=== PATIENT | female | born 1960 | race Caucasian/White ===

== ENCOUNTER 2017-05-25 15:02 | Outpatient (RCR) | payer MEDICARE, OTHER ==
[2011-11-25 11:00] VITALS: BP 132/75
[~2017-05-25 15:02] MED LIST: LEVAQUIN 5500 MG/TA1 PO; PERCOCET 325 MG1 TA2 PO; [UNRECOGNIZED DRUG - CODE] PO
== END 2017-08-23 | disposition home or self-care (01) ==
LOC: CARDREHAB
DX: Z48.812 Encounter for surgical aftercare following surgery on the circulatory system (principal); Z95.5 Presence of coronary angioplasty implant and graft; I21.19 ST elevation (STEMI) myocardial infarction involving other coronary artery of inferior wall

== ENCOUNTER 2019-06-02 21:38 | Observation (INO) | payer MEDICARE, OTHER ==
[~2019-06-02] VITALS: Ht 162.6 cm; Wt 59.4 kg
[2019-06-02 22:02] LABS: HEMATOCRIT 38.1 % (37.0-47.0); HEMOGLOBIN 12.5 g/dL (12.5-16.0); MEAN CELL VOLUME 98 fl (78-100); MEAN CORPUSCULAR HEMOGLOBIN 32 pg (27-31); MEAN CORPUSCULAR HGB CONC 33 g/dL (33-37); MEAN PLATELET VOLUME 10.7 fl (7.4-10.4); PLATELET COUNT 117 K/mm3 (130-400); RED BLOOD COUNT 3.87 M/mm3 (4.10-5.30); RED CELL DISTRIBUTION WIDTH 14.2 % (11.5-14.5); WHITE BLOOD COUNT 3.8 K/mm3 (4.8-10.8)
[2019-06-02 22:12] LABS: POTASSIUM 4.3 mmol/L (3.5-5.1)
[2019-06-02 22:13] LABS: CALCIUM 9.2 mg/dL (8.3-10.5)
[2019-06-02 22:14] LABS: TOTAL PROTEIN 7.1 g/dL (6.4-8.3)
[2019-06-02 22:16] LABS: TOTAL BILIRUBIN 0.3 mg/dL (0.2-1.2)
[2019-06-02 22:33] LABS: BAND 3 % (0-10); LYMPHOCYTE 2 % (20-51); MONOCYTE 5 % (3-10); NEUTROPHILS 90 % (42-75)
[2019-06-02] MEDS ORDERED: SYMBICORT1 AE3 IH (22:39)
[2019-06-02] MEDS ORDERED: ATORVASTATIN CA40 MG PO (22:39)
[2019-06-02] MEDS ORDERED: CLOPIDOGREL75 M2 PO (22:40)
[2019-06-02] MEDS ORDERED: ISOSORBIDE30 MG PO (22:40)
[2019-06-02] MEDS ORDERED: LOPRESSOR 550 MG/TAB PO (22:41)
[2019-06-02] MEDS ORDERED: ASPIR LOW81 MG PO (22:41)
[2019-06-02 23:05] VITALS: BP 107/63
[2019-06-02 23:50] VITALS: BP 107/63
[2019-06-03 02:29] VITALS: BP 116/69
[2019-06-03 05:34] VITALS: BP 162/78
[2019-06-03 09:51] VITALS: BP 100/58
[2019-06-03 14:01] VITALS: BP 144/77
[2019-06-03 17:05] VITALS: BP 94/42
[2019-06-03 22:05] VITALS: BP 111/71
[2019-06-04 02:07] VITALS: BP 108/61
[2019-06-04 05:44] VITALS: BP 114/63
[2019-06-04 09:53] VITALS: BP 111/67
[2019-06-05] MEDS ORDERED: IPRATROPIUM BROM3 M1 IH (19:17)
== END 2019-06-04 12:26 | disposition other institution (70) ==
LOC: ED 21:38 → MED/SURG 23:04 → ED 23:06 → MED/SURG 23:06
PROVIDERS: ADMIT Nurse Practitioner Primary Care
DX: J10.00 Influenza due to other identified influenza virus with unspecified type of pneumonia (principal); J44.1 Chronic obstructive pulmonary disease with (acute) exacerbation; F17.210 Nicotine dependence, cigarettes, uncomplicated; I25.10 Atherosclerotic heart disease of native coronary artery without angina pectoris; Z95.5 Presence of coronary angioplasty implant and graft; I10 Essential (primary) hypertension; E78.5 Hyperlipidemia, unspecified; Z79.82 Long term (current) use of aspirin; Z79.899 Other long term (current) drug therapy
CPT/HCPCS: A4216; G0378; J0456; J0696; J1650; J1885; J2930; J7030; J7050

== ENCOUNTER 2021-07-22 16:46 | Emergency (ER) | payer MEDICARE, OTHER ==
[~2021-07-22] VITALS: Ht 162.6 cm; Wt 60.9 kg
[~2021-07-22 16:46] MED LIST changes: +ADULT LOW DOSE81 MG PO; +ATORVASTATIN CA40 MG PO; +CLOPIDOGREL75 M2 PO; +IPRATROPIUM BROM3 M1 IH; +LOPRESSOR 550 MG/TAB PO; +SYMBICORT1 AE3 IH
[2021-07-22] MEDS ORDERED: WIXELA 250-501 EACH IH (17:00)
[2021-07-22] MEDS ORDERED: PREDNISONE20 M1 PO (17:01)
[2021-07-22] MEDS ORDERED: VIBRAMYCIN HYC100 MG PO (17:01)
[2021-07-22 17:21] LABS: MEAN CELL VOLUME 96 fl (78-100); MEAN CORPUSCULAR HEMOGLOBIN 32 pg (27-31); MEAN CORPUSCULAR HGB CONC 33 g/dL (33-37); PLATELET COUNT 235 K/mm3 (130-400); RED BLOOD COUNT 3.76 M/mm3 (4.10-5.30); RED CELL DISTRIBUTION WIDTH 14.1 % (11.5-14.5); WHITE BLOOD COUNT 10.5 K/mm3 (4.8-10.8)
[2021-07-22 17:32] LABS: POTASSIUM 4.2 mmol/L (3.5-5.1); SODIUM 143 mmol/L (136-145)
[2021-07-22 17:33] LABS: CALCIUM 10.7 mg/dL (8.3-10.5)
[2021-07-22 17:34] LABS: GLUCOSE 122 mg/dL (65-105)
[2021-07-22 17:35] LABS: CARBON DIOXIDE 23 mmol/L (23-31)
[2021-07-22 17:46] LABS: TROPONIN-I < 0.030 ng/mL (<0.030)
[2021-07-22 18:10] LABS: LYMPHOCYTE 4 % (20-51); MONOCYTE 7 % (3-10); NEUTROPHILS 89 % (42-75)
[2021-07-22] MEDS ORDERED: LORAZEPAM0.5 M1 PO (18:53)
[2021-07-22 19:04] VITALS: BP 12/78
== END 2021-07-22 19:27 | disposition home or self-care (01) ==
LOC: ED 16:46
PROVIDERS: Family Medicine
DX: J44.1 Chronic obstructive pulmonary disease with (acute) exacerbation (principal); R06.00 Dyspnea, unspecified; F17.210 Nicotine dependence, cigarettes, uncomplicated; Z86.16 Personal history of COVID-19

== ENCOUNTER 2021-07-24 21:23 | Emergency (ER) | payer MEDICARE, OTHER ==
[~2021-07-24] VITALS: Ht 162.6 cm; Wt 60.0 kg
[~2021-07-24 21:23] MED LIST changes: +LORAZEPAM0.5 M1 PO; +PREDNISONE20 M1 PO; +VIBRAMYCIN HYC100 MG PO; +WIXELA 250-501 EACH IH
[2021-07-24 22:19] LABS: HEMATOCRIT 37.4 % (37.0-47.0); HEMOGLOBIN 12.4 g/dL (12.5-16.0); MEAN CELL VOLUME 96 fl (78-100); MEAN CORPUSCULAR HEMOGLOBIN 32 pg (27-31); MEAN CORPUSCULAR HGB CONC 33 g/dL (33-37); MEAN PLATELET VOLUME 9.8 fl (7.4-10.4); PLATELET COUNT 280 K/mm3 (130-400); RED BLOOD COUNT 3.91 M/mm3 (4.10-5.30); WHITE BLOOD COUNT 8.9 K/mm3 (4.8-10.8)
[2021-07-24 22:32] LABS: POTASSIUM 4.1 mmol/L (3.5-5.1)
[2021-07-24 22:33] LABS: CALCIUM 10.6 mg/dL (8.3-10.5)
[2021-07-24 23:04] LABS: LYMPHOCYTE 9 % (20-51); MONOCYTE 8 % (3-10); NEUTROPHILS 83 % (42-75)
[2021-07-25 09:50] VITALS: BP 158/95
[2021-07-25] MEDS ORDERED: ISOSORBIDE30 MG PO (15:14)
== END 2021-07-25 07:36 | disposition other institution (70) ==
LOC: ED 21:23
PROVIDERS: Family Medicine
DX: J44.1 Chronic obstructive pulmonary disease with (acute) exacerbation (principal); I25.10 Atherosclerotic heart disease of native coronary artery without angina pectoris; R09.02 Hypoxemia; Z95.5 Presence of coronary angioplasty implant and graft; Z87.891 Personal history of nicotine dependence; Z20.822 Contact with and (suspected) exposure to COVID-19
CPT/HCPCS: J0696; J2930

== ENCOUNTER 2021-07-25 07:24 | Inpatient (IN) | payer MEDICARE, OTHER ==
[~2021-07-25] VITALS: Ht 162.6 cm; Wt 56.0 kg
[2021-07-25 09:00] VITALS: BP 158/95
[2021-07-25 11:02] LABS: BASO # 0.01 K/mm3 (0.02-0.10); HEMATOCRIT 36.8 % (37.0-47.0); HEMOGLOBIN 12.1 g/dL (12.5-16.0); LYMPH# 0.72 K/mm3 (1.50-4.00); MEAN CELL VOLUME 96 fl (78-100); MEAN CORPUSCULAR HEMOGLOBIN 32 pg (27-31); MEAN CORPUSCULAR HGB CONC 33 g/dL (33-37); MEAN PLATELET VOLUME 10.1 fl (7.4-10.4); MONO # 0.59 K/mm3 (0.20-0.80); NEU # 6.04 K/mm3 (1.40-6.50); PLATELET COUNT 278 K/mm3 (130-400); RED BLOOD COUNT 3.83 M/mm3 (4.10-5.30); RED CELL DISTRIBUTION WIDTH 13.8 % (11.5-14.5); WHITE BLOOD COUNT 7.5 K/mm3 (4.8-10.8)
[2021-07-25 11:17] LABS: CALCIUM 10.3 mg/dL (8.3-10.5)
[2021-07-25 11:50] LABS: D-DIMER 0.68 mg/L FEU (0.15-0.50)
[2021-07-25 14:13] VITALS: BP 157/81
[2021-07-25] MEDS ORDERED: ISOSORBIDE30 MG PO (15:14)
[2021-07-25 18:00] VITALS: BP 140/85
[2021-07-25 19:26] LABS: URINE APPEARANCE CLEAR; URINE BILIRUBIN NEGATIVE (NEGATIVE); URINE BLOOD NEGATIVE (NEGATIVE); URINE COLOR YELLOW; URINE GLUCOSE NEGATIVE (NEGATIVE); URINE KETONE NEGATIVE (NEGATIVE); URINE LEUKOCYTE ESTERASE NEGATIVE (NEGATIVE); URINE NITRATE NEGATIVE (NEGATIVE); URINE PROTEIN(semi-quant) TRACE (NEGATIVE); URINE UROBILINOGEN NORMAL (NORMAL)
[2021-07-25 22:21] VITALS: BP 145/82
[2021-07-26 01:46] VITALS: BP 115/66
[2021-07-26 05:54] VITALS: BP 145/73
[2021-07-26 07:38] LABS: BASO # 0.01 K/mm3 (0.02-0.10); HEMATOCRIT 36.1 % (37.0-47.0); HEMOGLOBIN 11.8 g/dL (12.5-16.0); LYMPH# 1.11 K/mm3 (1.50-4.00); MEAN CELL VOLUME 97 fl (78-100); MEAN CORPUSCULAR HEMOGLOBIN 32 pg (27-31); MEAN CORPUSCULAR HGB CONC 33 g/dL (33-37); MONO # 0.86 K/mm3 (0.20-0.80); NEU # 5.55 K/mm3 (1.40-6.50); PLATELET COUNT 233 K/mm3 (130-400); RED BLOOD COUNT 3.73 M/mm3 (4.10-5.30); RED CELL DISTRIBUTION WIDTH 13.9 % (11.5-14.5); WHITE BLOOD COUNT 7.9 K/mm3 (4.8-10.8)
[2021-07-26 07:44] LABS: POTASSIUM 4.3 mmol/L (3.5-5.1)
[2021-07-26 07:45] LABS: CALCIUM 9.7 mg/dL (8.3-10.5)
[2021-07-26 09:58] VITALS: BP 126/74
[2021-07-26 13:56] VITALS: BP 128/75
[2021-07-26 17:46] VITALS: BP 125/75
[2021-07-26 22:29] VITALS: BP 127/80
[2021-07-27 01:56] VITALS: BP 126/72
[2021-07-27 06:08] VITALS: BP 124/73
[2021-07-27 07:06] LABS: HEMATOCRIT 35.2 % (37.0-47.0); HEMOGLOBIN 11.5 g/dL (12.5-16.0); MEAN CELL VOLUME 98 fl (78-100); MEAN CORPUSCULAR HEMOGLOBIN 32 pg (27-31); MEAN CORPUSCULAR HGB CONC 33 g/dL (33-37); MEAN PLATELET VOLUME 10.1 fl (7.4-10.4); PLATELET COUNT 222 K/mm3 (130-400); RED BLOOD COUNT 3.61 M/mm3 (4.10-5.30); RED CELL DISTRIBUTION WIDTH 13.5 % (11.5-14.5); WHITE BLOOD COUNT 7.1 K/mm3 (4.8-10.8)
[2021-07-27 07:09] LABS: ALBUMIN 3.2 g/dL (3.4-4.8); POTASSIUM 4.4 mmol/L (3.5-5.1)
[2021-07-27 07:10] LABS: CALCIUM 9.7 mg/dL (8.3-10.5)
[2021-07-27 07:11] LABS: TOTAL PROTEIN 5.8 g/dL (6.2-8.1)
[2021-07-27 07:13] LABS: TOTAL BILIRUBIN 0.3 mg/dL (0.2-1.2)
[2021-07-27 09:16] LABS: HYPOCHROMIA 1+; LYMPHOCYTE 8 % (20-51); MONOCYTE 4 % (3-10); NEUTROPHILS 88 % (42-75); POLYCHROMASIA 1+
[2021-07-27 09:56] VITALS: BP 128/78
[2021-07-27 14:18] VITALS: BP 125/74
[2021-07-27 17:32] VITALS: BP 144/90
[2021-07-27 22:51] VITALS: BP 148/88
[2021-07-28 05:57] VITALS: BP 150/79
[2021-07-28 09:42] VITALS: BP 143/80
[2021-07-28] MEDS ORDERED: CLOPIDOGREL PO (11:35)
[2021-07-28] MEDS ORDERED: ZITHROMAX500 M2 PO (11:36)
[2021-07-28] MEDS ORDERED: PREDNISONE20 MG PO (11:37)
== END 2021-07-28 14:02 | disposition home health service (06) | DRG 190 ==
LOC: MED/SURG 07:24
PROVIDERS: Physician Assistant; ADMIT Nurse Practitioner
DX: J44.1 Chronic obstructive pulmonary disease with (acute) exacerbation (principal); J18.9 Pneumonia, unspecified organism; J44.0 Chronic obstructive pulmonary disease with (acute) lower respiratory infection; I25.10 Atherosclerotic heart disease of native coronary artery without angina pectoris; R09.02 Hypoxemia; F17.210 Nicotine dependence, cigarettes, uncomplicated; Z79.82 Long term (current) use of aspirin; Z79.52 Long term (current) use of systemic steroids; Z95.5 Presence of coronary angioplasty implant and graft
CPT/HCPCS: J0456; J0696; J1650; J2930; J7050; Q9967